=== PATIENT | male | born 1990 | race Caucasian/White ===

== ENCOUNTER 2022-01-18 07:54 | Emergency (ER) | payer MEDICAID, SELFPAY ==
[2022-01-18 08:05] VITALS: BP 152/87; PULSE 70; RESP 14; TEMP 37; O2SAT 97
--- NOTE | 2022-01-18 08:40 | ED.GENADUL_ITS ---
Discharge Plan Disposition Patient Disposition: HOME Condition: Stable Discharge Details Clinical Impression: Pain, dental Primary Care Provider: None,None ED Provider: Erika Jeter Home Meds and New Rx's Prescriptions: New penicillamine 250 mg tablet 250 mg PO QID Qty: 40 0RF Rx Instructions: administer on an empty stomach, 1 hour before or 2-3 hours after meals Continued acetaminophen 500 MG tablet 2 tab PO Q4H [id number] Discharge Instructions Instructions: Toothache (ED) Additional Instructions: Please follow-up with your dentist Take antibiotics as prescribed Use ibuprofen and Tylenol as instructed on the bottle and return earlier should you have difficulty swallowing, chest pain, shortness of breath, fever, or should you have new or worsening complaints Medical Decision Making No evidence of Stephenie's angina Placed on penicillin Ibuprofen and Tylenol for pain control After consent obtained inferior alveolar nerve block was performed with good relief in patient's pain Feels comfortable discharge home We will follow up with dentist Prescription for penicillin sent to his designated pharmacy HPI General Date/Time Provider Initiated Documentation: 01/18/22 08:05 . HPI Narrative: This 31-year-old male presents with left lower dental pain that started approximately days ago. Patient states prostatitis several years ago but him until recently. Denies any chest pain or shortness of breath. He denies any dizziness or weakness. He denies any headache. He had subjective fever yesterday. He has not taken ibuprofen or Tylenol prior to arrival today. He denies any drainage or swelling to his face. He denies any recent trauma to the affected area. He is otherwise reportedly healthy. Related Data Home Medications Medication Instructions Recorded Confirmed acetaminophen 500 mg tablet 2 tab PO Q4H PRN 08/14/17 01/18/22 penicillamine 250 mg tablet 250 mg PO QID #40 tab 01/18/22 Previous Rx's Medication Instructions Recorded penicillamine 250 mg tablet 250 mg PO QID #40 tab 01/18/22 Allergies Allergy/AdvReac Type Severity Reaction Status Date / Time No Known Allergies Allergy Unverified 01/18/22 08:08 General Stated Complaint: DentalOral HAN: 4 Review of Systems All systems reviewed & are unremarkable except as noted in HPI and below PFSH All Active Problems (Updated 01/18/22 @ 08:42 by TIM Guo) Pain, dental (Acute) Social History Smoking/Tobacco Use Status: Current every day Tobacco Type: cigarettes Smoking risk assessment performed?: Yes Alcohol Intake: never Drug use: Daily Substance use type: marijuana Do you feel safe at home: Yes Do you feel safe in your relationship?: Yes Exam Const General: cooperative, comfortable and no acute distress [facility] Teeth image: 1. Fracture, swelling, no obvious evidence of deep space infection, no soft palate induration, no trismus Eyes Pupils: PERRL Neck Other: No stridor Course Vital Signs Vital signs: Vital Signs Temperature 37.0 C 01/18/22 08:05 Pulse 70 01/18/22 08:05 Respiratory Rate 14 01/18/22 08:05 Blood Pressure 152/87 H 01/18/22 08:05 Pulse Oximetry 97 01/18/22 08:05 Temperature 37.0 C 01/18/22 08:05 Temperature Source Temporal Artery Scan 01/18/22 08:05 Pulse 70 01/18/22 08:05 Respiratory Rate 14 01/18/22 08:05 Respiratory Effort Non-Labored 01/18/22 08:07 Blood Pressure 152/87 H 01/18/22 08:05 Blood Pressure Position Sitting 01/18/22 08:05 Pulse Oximetry 97 01/18/22 08:05 Oxygen Delivery Method Room Air 01/18/22 08:05 Oxygen Flow Rate 0 01/18/22 08:05 Pain Level 6 01/18/22 08:10 Procedures Nerve Block Nerve Block 1: Time out performed: Yes Local Anesthetic: Bupivicaine 0.25% Side: left Intraoral Nerve Block: supraperiosteal and inferior alveolar Procedure Successful: Yes Patient Tolerated Procedure: well Complications: none
== END 2022-01-18 09:17 | disposition home or self-care (01) ==
PROVIDERS: Emergency Provider Physician Assistant
DX: R68.84 Jaw pain (principal); K08.89 Other specified disorders of teeth and supporting structures; R50.9 Fever, unspecified
CPT/HCPCS: 99283